=== PATIENT | male | born 1970 | race Caucasian/White ===

== ENCOUNTER 2020-07-23 15:39 | Emergency (ER) | payer OTHER ==
[~2020-07-23] VITALS: Ht 182.9 cm; Wt 54.4 kg
[~2020-07-23 15:39] MED LIST: AMIODARONE HCL200 MG GT; DEPAKOTE 250 M250 MG PO; ELIQUIS 5 MG TAB5 MG PO; FEOSOL325 MG PO; HUMALOG 10100 UNITS/ SC; HUMALOG100 UNIT/3 SC; KEPPRA 100100 MG/1 M PEG; KEPPRA750 MG PO; KLONOPIN1 MG PO; LANTUS INS100 UTS/M1 SC; LIPITOR20 MG PO; LISINOPRIL10 MG PO; METFORMIN HCL750 MG PO; NAPROSYN500 MG PO; OMEPRAZOLE20 MG PO; PERCOCET 7.5-31 EACH PO; PHENERGAN25 MG/1 M1 PO; REMERON45 M1 PO; SYNTHROID200 MCG PO; TOPAMAX25 MG PO; VANCOCIN 125MG/2.5ML PO; ZOFRAN4 MG PO
[2020-07-23 17:45] LABS: BUN/CREATININE RATIO 15 (0-10)
[2020-07-23 17:52] LABS: HEMOGLOBIN 9.1 gm/dl (14.0-17.5); RED BLOOD COUNT 3.13 M/UL (4.20-5.50); WHITE BLOOD COUNT 28.4 K/UL (4.5-11.0)
[2020-07-24 00:58] LABS: BUN/CREATININE RATIO 19 (0-10)
[2020-07-24 04:34] LABS: HEMOGLOBIN 9.4 gm/dl (14.0-17.5); RED BLOOD COUNT 3.17 M/UL (4.20-5.50); WHITE BLOOD COUNT 28.8 K/UL (4.5-11.0)
[2020-07-24 04:55] LABS: BUN/CREATININE RATIO 24 (0-10)
[2020-07-29] MEDS ORDERED: NEURONTIN600 MG PO (00:59)
[2020-07-29] MEDS ORDERED: MEGACE 400400 MG/10 PO (01:03)
[2020-07-29] MEDS ORDERED: ROBAXIN 750 MG750 MG PO (01:03)
[2020-07-29] MEDS ORDERED: ZOFRAN 4 MG TAB4 MG PO (01:06)
[2020-07-29] MEDS ORDERED: ZENPEP DR 15,01 EACH PO (01:07)
[2020-10-15] MEDS ORDERED: BENTYL 10MG CAP10 MG PO (00:58)
[2020-10-21] MEDS ORDERED: AMLODIPINE BESYL5 MG PO (00:56)
== END 2020-07-24 09:43 | disposition left against medical advice (07) ==
LOC: ER1 15:39 → CDU 22:54 → ER1 22:54 → CDU 07-24 09:43
PROVIDERS: Internal Medicine; Nurse Practitioner
DX: J18.9 Pneumonia, unspecified organism (principal); E87.2 Acidosis; Z20.822 Contact with and (suspected) exposure to COVID-19; I12.9 Hypertensive chronic kidney disease with stage 1 through stage 4 chronic kidney disease, or unspecified chronic kidney disease; E11.22 Type 2 diabetes mellitus with diabetic chronic kidney disease; N18.9 Chronic kidney disease, unspecified; D72.829 Elevated white blood cell count, unspecified; R53.1 Weakness
CPT/HCPCS: 0240U; 36415; 36600; 71045; 71250; 80048; 80053; 80307; 81001; 82009; 82010; 82550; 82553; 82803; 82962; 83605; 83690; 83874; 83930; 84484; 85025; 87040; 87070; 87086; 87205; 93005; 94640; 94664; 94760; 96365; 96366; 96368; 96372; 96375; 99285; G0480; J0692; J1650; J2405; J3370; J7030; J7050; J7070; Q9967

== ENCOUNTER 2020-07-29 12:09 | Inpatient (IN) | payer OTHER ==
[~2020-07-29] VITALS: Ht 182.9 cm; Wt 58.1 kg
[~2020-07-29 12:09] MED LIST changes: +MEGACE 400400 MG/10 PO; +NEURONTIN600 MG PO; +ROBAXIN 750 MG750 MG PO; +ZENPEP DR 15,01 EACH PO; +ZOFRAN 4 MG TAB4 MG PO
[2020-07-29 14:25] LABS: HEMOGLOBIN 8.9 gm/dl (14.0-17.5); RED BLOOD COUNT 2.99 M/UL (4.20-5.50)
[2020-07-29 14:26] LABS: WHITE BLOOD COUNT 34.4 K/UL (4.5-11.0)
[2020-07-29] MEDS ORDERED: NAPROXEN500 MG PO (15:07)
[2020-07-29] MEDS ORDERED: LANTUS100 UNIT/1 SC (15:10)
[2020-07-29] MEDS ORDERED: GLUCOPHAGE XR750 MG PO (15:11)
[2020-07-29] MEDS ORDERED: CYANOCOBAL1000 MCG/1 INJ (15:12)
[2020-07-29] MEDS ORDERED: FERROUS SULFAT325 M2 PO (15:13)
[2020-07-29] MEDS ORDERED: ADMELOG100 UNIT/1 SC (15:15)
[2020-07-29] MEDS ORDERED: SENNA8.6 MG PO (15:16)
[2020-07-29] MEDS ORDERED: ZESTRIL/PRINIVI10 MG PO (15:16)
[2020-07-29] MEDS ORDERED: KLONOPIN1 MG PO (15:21)
[2020-07-29] MEDS ORDERED: PERCOCET 7.5-31 EACH PO (15:22)
[2020-07-29 16:24] LABS: BUN/CREATININE RATIO 16 (0-10)
[2020-07-29 18:49] LABS: BUN/CREATININE RATIO 19 (0-10)
[2020-07-29 23:07] LABS: BUN/CREATININE RATIO 20 (0-10)
[2020-07-30 05:39] LABS: HEMOGLOBIN 7.9 gm/dl (14.0-17.5); RED BLOOD COUNT 2.72 M/UL (4.20-5.50); WHITE BLOOD COUNT 22.9 K/UL (4.5-11.0)
[2020-07-30 06:02] LABS: BUN/CREATININE RATIO 25 (0-10)
[2020-07-31 05:40] LABS: RED BLOOD COUNT 2.67 M/UL (4.20-5.50)
[2020-07-31 05:45] LABS: WHITE BLOOD COUNT 13.5 K/UL (4.5-11.0)
[2020-07-31 06:01] LABS: BUN/CREATININE RATIO 19 (0-10)
[2020-08-01 06:20] LABS: RED BLOOD COUNT 3.03 M/UL (4.20-5.50); WHITE BLOOD COUNT 19.8 K/UL (4.5-11.0)
[2020-08-01 06:39] LABS: BUN/CREATININE RATIO 21 (0-10)
[2020-10-15] MEDS ORDERED: BENTYL 10MG CAP10 MG PO (00:58)
[2020-10-21] MEDS ORDERED: AMLODIPINE BESYL5 MG PO (00:56)
== END 2020-08-01 13:19 | disposition left against medical advice (07) | DRG 871 ==
LOC: ER1 12:09 → CDU 14:18 → 2 EAST 22:15 → MED SURG 4 07-31 18:07
PROVIDERS: Emergency Medicine; Internal Medicine Nephrology; Physician Assistant Medical; ADMIT Internal Medicine
DX: A41.9 Sepsis, unspecified organism (principal); E11.10 Type 2 diabetes mellitus with ketoacidosis without coma; J18.9 Pneumonia, unspecified organism; N17.9 Acute kidney failure, unspecified; K86.1 Other chronic pancreatitis; R64 Cachexia; E87.1 Hypo-osmolality and hyponatremia; D72.829 Elevated white blood cell count, unspecified; E87.5 Hyperkalemia; Z20.822 Contact with and (suspected) exposure to COVID-19; F41.1 Generalized anxiety disorder; G40.909 Epilepsy, unspecified, not intractable, without status epilepticus; D64.9 Anemia, unspecified; E03.9 Hypothyroidism, unspecified; F17.210 Nicotine dependence, cigarettes, uncomplicated; R91.1 Solitary pulmonary nodule; R00.0 Tachycardia, unspecified; Z79.4 Long term (current) use of insulin; Z79.899 Other long term (current) drug therapy; Z79.84 Long term (current) use of oral hypoglycemic drugs; Z79.01 Long term (current) use of anticoagulants; E11.65 Type 2 diabetes mellitus with hyperglycemia; I10 Essential (primary) hypertension; I48.0 Paroxysmal atrial fibrillation; Z86.718 Personal history of other venous thrombosis and embolism; E78.5 Hyperlipidemia, unspecified
CPT/HCPCS: 36415; 36600; 71045; 71250; 80048; 80053; 80202; 81001; 82009; 82550; 82553; 82803; 82962; 83605; 83690; 83735; 83874; 83880; 84132; 84484; 85025; 85027; 87040; 90471; 93005; 94640; 94664; 94760; 96365; 96366; 96372; 96375; 96376; 99285; G0480; J0692; J3370; J3475; J7030; J7070; U0002

== ENCOUNTER 2020-08-13 07:28 | Emergency (ER) | payer OTHER ==
[~2020-08-13 07:28] MED LIST changes: +ADMELOG100 UNIT/1 SC; +CYANOCOBAL1000 MCG/1 INJ; +FERROUS SULFAT325 M2 PO; +GLUCOPHAGE XR750 MG PO; +LANTUS100 UNIT/1 SC; +NAPROXEN500 MG PO; +SENNA8.6 MG PO; +ZESTRIL/PRINIVI10 MG PO
[2020-10-15] MEDS ORDERED: BENTYL 10MG CAP10 MG PO (00:58)
[2020-10-21] MEDS ORDERED: AMLODIPINE BESYL5 MG PO (00:56)
== END 2020-08-13 10:45 | disposition home or self-care (01) ==
LOC: ER1 07:28
DX: L02.31 Cutaneous abscess of buttock (principal); I48.91 Unspecified atrial fibrillation; E78.5 Hyperlipidemia, unspecified; E07.9 Disorder of thyroid, unspecified; E11.40 Type 2 diabetes mellitus with diabetic neuropathy, unspecified; F17.210 Nicotine dependence, cigarettes, uncomplicated; Z79.899 Other long term (current) drug therapy; Z79.4 Long term (current) use of insulin
CPT/HCPCS: 10060; 99283

== ENCOUNTER 2020-10-15 07:39 | Observation (INO) | payer OTHER ==
[~2020-10-15] VITALS: Ht 182.9 cm; Wt 59.0 kg
[~2020-10-15 07:39] MED LIST changes: +BENTYL 10MG CAP10 MG PO
[2020-10-15 10:36] LABS: RED BLOOD COUNT 4.11 M/UL (4.20-5.50); WHITE BLOOD COUNT 20.5 K/UL (4.5-11.0)
[2020-10-15 11:05] LABS: BUN/CREATININE RATIO 24 (0-10)
[2020-10-15] MEDS ORDERED: REMERON 15 MG T15 MG PO (14:11)
[2020-10-15] MEDS ORDERED: AMBIEN5 MG PO (14:11)
[2020-10-15] MEDS ORDERED: BASAGLAR K100 UNIT/1 SC (14:13)
[2020-10-15] MEDS ORDERED: KEPPRA750 MG PO (15:14)
[2020-10-15 21:42] LABS: BUN/CREATININE RATIO 28 (0-10)
[2020-10-16 04:27] LABS: HEMOGLOBIN 10.5 gm/dl (14.0-17.5); RED BLOOD COUNT 3.37 M/UL (4.20-5.50)
[2020-10-16 05:02] LABS: BUN/CREATININE RATIO 30 (0-10)
--- NOTE | 2020-10-16 10:51 | NUR ---
0922: F/U BLOOD GLUCOSE AFTER BREAKFAST NOTED AT 115.
[2020-10-16] MEDS ORDERED: LEVOFLOXACIN750 MG PO (11:14)
--- NOTE | 2020-10-16 13:47 | NUR ---
1347: FOLLOW UP K+ LEVEL NOTED AT 3.8.
[2020-10-21] MEDS ORDERED: AMLODIPINE BESYL5 MG PO (00:56)
== END 2020-10-16 13:29 | disposition home or self-care (01) ==
LOC: ER1 07:39 → CDU 13:35 → MED SURG 4 13:35
PROVIDERS: Emergency Medicine; ADMIT Internal Medicine
DX: K86.1 Other chronic pancreatitis (principal); E11.10 Type 2 diabetes mellitus with ketoacidosis without coma; N17.9 Acute kidney failure, unspecified; I07.9 Rheumatic tricuspid valve disease, unspecified; F41.8 Other specified anxiety disorders; E03.9 Hypothyroidism, unspecified; E78.5 Hyperlipidemia, unspecified; G40.909 Epilepsy, unspecified, not intractable, without status epilepticus; K21.9 Gastro-esophageal reflux disease without esophagitis; F17.210 Nicotine dependence, cigarettes, uncomplicated; I10 Essential (primary) hypertension; K29.70 Gastritis, unspecified, without bleeding; D72.829 Elevated white blood cell count, unspecified; E86.0 Dehydration; E87.2 Acidosis; Z79.4 Long term (current) use of insulin; Z79.899 Other long term (current) drug therapy; Z20.822 Contact with and (suspected) exposure to COVID-19
CPT/HCPCS: 36415; 36600; 71045; 80048; 80053; 80061; 81001; 82009; 82550; 82553; 82803; 82962; 83605; 83690; 83735; 83874; 84132; 84484; 85025; 86140; 87040; 96365; 96374; 96375; 96376; 99285; C9113; G0378; J2270; J2405; J2543; J3480; J7030; J7070; Q9967; U0002

== ENCOUNTER → 2020-10-19 | Outpatient (CLI) | payer OTHER ==
[~2020-10-19] MED LIST changes: +AMBIEN5 MG PO; +AMLODIPINE BESYL5 MG PO; +BASAGLAR K100 UNIT/1 SC; +BISMATROL262 MG/15 PO; +CLARITHROMYCIN PO; +FLAGYL500 MG PO; +LEVOFLOXACIN750 MG PO; +PROTONIX 40 MG40 M1 PO; +REMERON 15 MG T15 MG PO
== END ==
LOC: US 11:10
DX: R10.11 Right upper quadrant pain (principal); K76.0 Fatty (change of) liver, not elsewhere classified
CPT/HCPCS: 76705

== ENCOUNTER 2020-10-20 04:35 | Emergency (ER) | payer OTHER ==
[~2020-10-20 04:35] MED LIST changes: -AMLODIPINE BESYL5 MG PO; -BISMATROL262 MG/15 PO; -CLARITHROMYCIN PO; -FLAGYL500 MG PO; -PROTONIX 40 MG40 M1 PO
[2020-10-20 05:14] LABS: HEMOGLOBIN 11.4 gm/dl (14.0-17.5); RED BLOOD COUNT 3.63 M/UL (4.20-5.50); WHITE BLOOD COUNT 17.4 K/UL (4.5-11.0)
[2020-10-20 05:35] LABS: BUN/CREATININE RATIO 12 (0-10)
[2020-10-21] MEDS ORDERED: AMLODIPINE BESYL5 MG PO (00:56)
== END 2020-10-20 06:48 | disposition home or self-care (01) ==
LOC: ER1 04:35
PROVIDERS: Family Medicine
DX: R10.13 Epigastric pain (principal); E11.9 Type 2 diabetes mellitus without complications; I10 Essential (primary) hypertension; G40.909 Epilepsy, unspecified, not intractable, without status epilepticus; F17.210 Nicotine dependence, cigarettes, uncomplicated; Z79.899 Other long term (current) drug therapy
CPT/HCPCS: 80053; 81001; 83690; 85025; 96374; 96375; 99284; J1642; J2270; J2405

== ENCOUNTER 2020-10-21 10:29 | Inpatient (IN) | payer OTHER ==
[~2020-10-21] VITALS: Ht 182.9 cm; Wt 58.5 kg
[~2020-10-21 10:29] MED LIST changes: +AMLODIPINE BESYL5 MG PO
[2020-10-21 11:25] LABS: HEMOGLOBIN 12.1 gm/dl (14.0-17.5); RED BLOOD COUNT 3.88 M/UL (4.20-5.50)
[2020-10-21 11:26] LABS: WHITE BLOOD COUNT 23.6 K/UL (4.5-11.0)
[2020-10-21 11:50] LABS: BUN/CREATININE RATIO 14 (0-10)
[2020-10-22 03:50] LABS: HEMOGLOBIN 10.3 gm/dl (14.0-17.5)
[2020-10-22 04:02] LABS: RED BLOOD COUNT 3.34 M/UL (4.20-5.50); WHITE BLOOD COUNT 13.2 K/UL (4.5-11.0)
[2020-10-22 04:13] LABS: BUN/CREATININE RATIO 15 (0-10)
[2020-10-22 17:49] LABS: HEMOGLOBIN 10.9 gm/dl (14.0-17.5); RED BLOOD COUNT 3.48 M/UL (4.20-5.50)
[2020-10-22 18:08] LABS: BUN/CREATININE RATIO 12 (0-10)
[2020-10-23 07:00] LABS: HEMOGLOBIN 10.3 gm/dl (14.0-17.5); RED BLOOD COUNT 3.3 M/UL (4.20-5.50); WHITE BLOOD COUNT 16.9 K/UL (4.5-11.0)
[2020-10-23 07:18] LABS: BUN/CREATININE RATIO 11 (0-10)
[2020-10-24 06:50] LABS: BUN/CREATININE RATIO 8 (0-10)
[2020-10-25 05:59] LABS: HEMOGLOBIN 9.4 gm/dl (14.0-17.5); RED BLOOD COUNT 3.02 M/UL (4.20-5.50)
[2020-10-25 06:03] LABS: WHITE BLOOD COUNT 8.2 K/UL (4.5-11.0)
[2020-10-25 06:23] LABS: BUN/CREATININE RATIO 11 (0-10)
[2020-10-26 06:45] LABS: BUN/CREATININE RATIO 12 (0-10)
[2020-10-27 04:18] LABS: HEMOGLOBIN 9.8 gm/dl (14.0-17.5); RED BLOOD COUNT 3.12 M/UL (4.20-5.50)
[2020-10-27 04:19] LABS: WHITE BLOOD COUNT 14.7 K/UL (4.5-11.0)
[2020-10-27 04:38] LABS: BUN/CREATININE RATIO 11 (0-10)
[2020-10-27] MEDS ORDERED: FLAGYL500 MG PO (10:40)
[2020-10-27] MEDS ORDERED: BISMATROL262 MG/15 PO (10:40)
[2020-10-27] MEDS ORDERED: CLARITHROMYCIN PO (10:40)
[2020-10-27] MEDS ORDERED: PROTONIX 40 MG40 M1 PO (10:40)
--- NOTE | 2020-10-27 10:55 | NUR ---
10/27/20 1050 REPORT CALLED TO BJ AT [facility]
== END 2020-10-27 12:30 | disposition home or self-care (01) | DRG 357 ==
LOC: ER1 10:29 → MED SURG 4 12:18 → CDU 12:18 → MED SURG 4 14:16
PROVIDERS: Physician Assistant; Physician Assistant Medical; Surgery Trauma Surgery; ADMIT Internal Medicine
PROC: 0DB68ZX Excision of Stomach, Via Natural or Artificial Opening Endoscopic, Diagnostic (ICD-10-PCS; 2020-10-22)
PROC: 0FT44ZZ Resection of Gallbladder, Percutaneous Endoscopic Approach (ICD-10-PCS; principal; 2020-10-22 11:00)
DX: K31.1 Adult hypertrophic pyloric stenosis (principal); K81.0 Acute cholecystitis; K86.1 Other chronic pancreatitis; E87.2 Acidosis; E44.1 Mild protein-calorie malnutrition; Z68.1 Body mass index [BMI] 19.9 or less, adult; K25.9 Gastric ulcer, unspecified as acute or chronic, without hemorrhage or perforation; Z20.822 Contact with and (suspected) exposure to COVID-19; F32.9 Major depressive disorder, single episode, unspecified; T39.395A Adverse effect of other nonsteroidal anti-inflammatory drugs [NSAID], initial encounter; F10.11 Alcohol abuse, in remission; I48.0 Paroxysmal atrial fibrillation; E11.9 Type 2 diabetes mellitus without complications; F17.210 Nicotine dependence, cigarettes, uncomplicated; F41.9 Anxiety disorder, unspecified; K86.81 Exocrine pancreatic insufficiency; E78.5 Hyperlipidemia, unspecified; I10 Essential (primary) hypertension; G40.909 Epilepsy, unspecified, not intractable, without status epilepticus; Z86.718 Personal history of other venous thrombosis and embolism; Z79.890 Hormone replacement therapy; Z79.899 Other long term (current) drug therapy; Z82.49 Family history of ischemic heart disease and other diseases of the circulatory system; Z83.3 Family history of diabetes mellitus; Z79.4 Long term (current) use of insulin
CPT/HCPCS: 36415; 71045; 76705; 80048; 80053; 81001; 82550; 82553; 82962; 83605; 83690; 83735; 83874; 84100; 84132; 84484; 85025; 85027; 85610; 85730; 87086; 88341; 88342; 96374; 96375; 99284; 99285; C9113; J0690; J1100; J1170; J1335; J1642; J1650; J1953; J2001; J2060; J2250; J2270; J2405; J2550; J2704; J2710; J3010; J3480; J7030; J7120; Q9963; U0002